=== PATIENT | male | born 1995 | race Caucasian/White ===

== ENCOUNTER 2022-01-20 03:14 | Emergency (ER) | payer SELFPAY ==
[2022-01-20] MEDS: Tetracaine HCl/PF 0.5% 4 ML Bottle EYEBOTH ONE (03:44)
[2022-01-20] MEDS: Sodium Chloride 0.9% 500 ML IV SCH (03:44)
[2022-01-20] MEDS: Acetaminophen/HYDROcodone 325-5 MG Tab PO ONE (03:44)
[2022-01-20] MEDS: Sodium Chloride 0.9% 10 ML Syringe FLUSH PRN (03:47)
[2022-01-20] MEDS: Sodium Chloride 0.9% 2.5 ML Syringe FLUSH PRN (03:47)
[2022-01-20 04:04] LABS: CARBON DIOXIDE,CO2 24.9 mmol/L (21.0-32.0); POTASSIUM,K 3.3 mmol/L (3.5-5.1)
[2022-01-20] MEDS: Iopamidol 755 MG/ML 500 ML Multipack Bottle IVPUSH STA (04:47)
[2022-01-20 05:54] LABS: CORONAVIRUS COVID-19 NAA NEGATIVE (NEGATIVE); INFLUENZA A NAA NEGATIVE (NEGATIVE); INFLUENZA B NAA NEGATIVE (NEGATIVE)
== END 2022-01-20 06:14 | disposition home or self-care (01) ==
LOC: MW.ED 03:14
DX: K02.9 Dental caries, unspecified (principal); J32.9 Chronic sinusitis, unspecified; Z20.822 Contact with and (suspected) exposure to COVID-19
CPT/HCPCS: 0240U; 36415; 70450; 70487; 80053; 80305; 85025; 99284; A9270; J3490; J7040; Q9967

== ENCOUNTER 2023-05-01 01:00 | Emergency (ER) | payer SELFPAY ==
[2023-05-01] MEDS ORDERED: Ketorolac 30 MG/ML SDV IVPUSH ONE (01:34)
[2023-05-01 01:45] LABS: BASOPHILS ABSOLUTE AUTO 0.04 K/uL (0.00-0.20); BASOPHILS PERCENT AUTO 0.6 % (0.0-1.0); EOSINOPHILS ABSOLUTE AUTO 0.44 K/uL (0.00-0.45); EOSINOPHILS PERCENT AUTO 6.3 % (0.0-6.0); HEMATOCRIT 42.1 % (42.0-52.0); HEMOGLOBIN 15.3 g/dL (14.0-18.0); IMMATURE GRAN ABSOLUTE AUTO 0.02 K/uL (0.00-0.05); IMMATURE GRAN PERCENT AUTO 0.3 % (0.0-0.4); LYMPHOCYTES ABSOLUTE AUTO 3.15 K/uL (1.00-4.80); LYMPHOCYTES PERCENT AUTO 45.4 % (24.0-44.0); MEAN CORPUSCULAR HEMOGLOBIN 30.1 pg (28.0-32.0); MEAN CORPUSCULAR HGB CONC 36.3 g/dL (32.0-36.0); MEAN CORPUSCULAR VOLUME 82.7 fL (83.0-99.0); MEAN PLATELET VOLUME 10.2 fL (9.4-12.4); MONOCYTES ABSOLUTE AUTO 0.39 K/uL (0.00-0.80); MONOCYTES PERCENT AUTO 5.6 % (0.0-8.0); NEUTROPHILS PERCENT AUTO 41.8 % (41.0-71.0); PLATELET COUNT,PLT 165 K/uL (150-400); RED BLOOD CELL COUNT 5.09 M/uL (4.52-5.90); WHITE BLOOD CELL COUNT,WBC 6.94 K/uL (3.9-11.3)
[2023-05-01 02:43] LABS: CALCIUM 9.7 mg/dL (8.5-10.1); CARBON DIOXIDE,CO2 21.1 mmol/L (21.0-32.0); CREATININE 1.4 mg/dL (0.8-1.3); EST CRCL DRUG DOSING (CG) 88.78 mL/min; POTASSIUM,K 3.9 mmol/L (3.5-5.1)
[2023-05-01] MEDS ORDERED: Iopamidol 755 MG/ML 500 ML Multipack Bottle IVPUSH ONE (03:04)
== END 2023-05-01 05:05 | disposition home or self-care (01) ==
LOC: MW.ED 01:00
DX: R05.9 Cough, unspecified (principal); F17.210 Nicotine dependence, cigarettes, uncomplicated
CPT/HCPCS: 36415; 71046; 71275; 80048; 84484; 85025; 85379; 93005; 96374; 99284; J1885; Q9967; 93010

== ENCOUNTER 2023-11-15 02:06 | Emergency (ER) | payer SELFPAY ==
[2023-11-15 02:39] LABS: BASOPHILS ABSOLUTE AUTO 0.03 K/uL (0.00-0.20); BASOPHILS PERCENT AUTO 0.4 % (0.0-1.0); EOSINOPHILS ABSOLUTE AUTO 0.19 K/uL (0.00-0.45); EOSINOPHILS PERCENT AUTO 2.5 % (0.0-6.0); HEMATOCRIT 41.9 % (42.0-52.0); HEMOGLOBIN 15.1 g/dL (14.0-18.0); IMMATURE GRAN ABSOLUTE AUTO 0.02 K/uL (0.00-0.05); IMMATURE GRAN PERCENT AUTO 0.3 % (0.0-0.4); LYMPHOCYTES ABSOLUTE AUTO 2.68 K/uL (1.00-4.80); LYMPHOCYTES PERCENT AUTO 34.9 % (24.0-44.0); MEAN CORPUSCULAR HEMOGLOBIN 30.1 pg (28.0-32.0); MEAN CORPUSCULAR VOLUME 83.5 fL (83.0-99.0); MEAN PLATELET VOLUME 10.4 fL (9.4-12.4); MONOCYTES ABSOLUTE AUTO 0.36 K/uL (0.00-0.80); MONOCYTES PERCENT AUTO 4.7 % (0.0-8.0); NEUTROPHILS PERCENT AUTO 57.2 % (41.0-71.0); PLATELET COUNT,PLT 169 K/uL (150-400); RED BLOOD CELL COUNT 5.02 M/uL (4.52-5.90); WHITE BLOOD CELL COUNT,WBC 7.68 K/uL (3.9-11.3)
[2023-11-15] MEDS: Bupivacaine 0.5% 10 ML SDV INJECT ONE (02:45)
[2023-11-15] MEDS: Sodium Chloride 0.9% 1,000 ML IV ONE (02:45)
[2023-11-15] MEDS: Sodium Chloride 0.9% 2.5 ML Syringe FLUSH PRN (02:45)
[2023-11-15] MEDS: Ampicillin/Sulbactam Na 3 GM in Sodium Chloride 0.9% 100 ML IV ONE (02:45)
[2023-11-15] MEDS: diphenhydrAMINE 50 MG/ML SDV IVPUSH ONE (02:45)
[2023-11-15] MEDS: Metoclopramide 10 MG/2 ML SDV IVPUSH ONE (02:45)
[2023-11-15] MEDS: Sodium Chloride 0.9% 10 ML Syringe FLUSH PRN (02:45)
[2023-11-15] MEDS: Lidocaine 1% 5 ML VIAL INJECT ONE (02:45)
[2023-11-15 03:04] LABS: A/G RATIO 1.3 (0.9-1.6); ALBUMIN 4.3 g/dL (3.4-5.0); BILIRUBIN TOTAL 0.5 mg/dL (0.2-1.0); CALCIUM 9.4 mg/dL (8.5-10.1); CARBON DIOXIDE,CO2 20.7 mmol/L (21.0-32.0); CREATININE 1.2 mg/dL (0.8-1.3); EST CRCL DRUG DOSING (CG) 103.57 mL/min; POTASSIUM,K 3.6 mmol/L (3.5-5.1); PROTEIN TOTAL,TP 7.6 g/dL (6.4-8.2)
== END 2023-11-15 03:57 | disposition home or self-care (01) ==
LOC: MW.ED 02:06
DX: K02.9 Dental caries, unspecified (principal); Z79.899 Other long term (current) drug therapy
CPT/HCPCS: 36415; 64400; 80053; 85025; 96365; 96375; 99283; J0295; J0665; J1200; J2765; J3490; J7030; 99284

== ENCOUNTER 2024-12-30 21:40 | Emergency (ER) | payer SELFPAY ==
[2024-12-30] MEDS: Lidocaine 1% 10 ML MDV INFILT ONE (22:08)
[2024-12-30] MEDS: Acetaminophen 500 MG Tab PO ONE (23:41)
[2024-12-30] MEDS: Ibuprofen 600 MG Tab PO ONE (23:42)
[2024-12-30] MEDS: Bacitracin Oint 28.35 GM Tube TOP ONE (23:42)
== END 2024-12-31 00:18 | disposition home or self-care (01) ==
LOC: MW.ED 21:40
DX: S61.211A Laceration without foreign body of left index finger without damage to nail, initial encounter (principal); W26.0XXA Contact with knife, initial encounter
CPT/HCPCS: 12001; 99282; A9270; J2003; 12041; 29125; 99283